=== PATIENT | female | born 1995 | race Caucasian/White ===

== ENCOUNTER 2017-02-05 04:33 | Emergency (ER) | payer BC ==
[2017-02-05 04:39] VITALS: RESP 16; TEMP 98.1; O2SAT 98
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
[2017-02-05] MEDS ORDERED: IBUPROFEN 600 MG TAB PO ONE ×2 (05:38→05:40)
[2017-02-05] MEDS ORDERED: LORazepam 0.5 MG TAB PO ONE (05:40)
[2017-02-05] MEDS ORDERED: LORazepam 0.5 MG TAB ONE (05:41)
[2017-02-05] MEDS ORDERED: CEFTRIAXONE IM 350 MG/ML SYRINGE IM ONE (06:15)
[2017-02-05] MEDS ORDERED: ULIPRISTAL ACETATE 30 MG TAB PO ONE (06:15)
[2017-02-05] MEDS ORDERED: AZITHROMYCIN 250 MG TAB PO ONE (06:15)
[2017-02-05 09:25] VITALS: BP 101/60; PULSE 74
== END 2017-02-05 08:30 | disposition home or self-care (01) ==
LOC: EDUNIT# → EEVIPCON 04:33 → SANE 08:30
DX: T74.21XA Adult sexual abuse, confirmed, initial encounter (principal); F10.921 Alcohol use, unspecified with intoxication delirium; F17.200 Nicotine dependence, unspecified, uncomplicated
CPT/HCPCS: J0696